=== PATIENT | male | born 1990 | race Caucasian/White ===

== ENCOUNTER 2016-12-16 02:53 | Emergency (ER) | payer MEDICAID ==
[~2016-12-16] VITALS: Ht 165.1 cm; Wt 60.0 kg
[2016-12-16] MEDS ORDERED: SODIUM CHLORIDE 0.9% 1,000 ML IV ONE ×2 (03:24→07:33)
[2016-12-16] MEDS ORDERED: TETANUS, DIPHTHERIA, PERTUSSIS VAC/PF 0.5ML (>7YR OLD) IM ONE (03:30)
[2016-12-16] MEDS ORDERED: LIDOCAINE HCL 1%/EPI 1:200,000 30 ML VIAL MC ONE (03:30)
[2016-12-16] MEDS ORDERED: BACITRACIN ZINC OINT UDPKT TOP ONE (03:30)
[2016-12-16 03:43] LABS: BASOPHILS % 0.3 % (0.0-2.0); EOSINOPHILS % 0.2 % (0.0-5.0); HEMATOCRIT. 42.1 % (42.0-52.0); HEMOGLOBIN. 14.2 g/dL (14.0-18.0); MEAN CORPUSCULAR HEMOGLOBIN 31.6 pg (28.0-32.0); MEAN CORPUSCULAR VOLUME 93.6 fL (80.0-94.0); MEAN PLATELET VOLUME 8.8 fl (7.4-10.4); MONOCYTES % 6.7 % (2.0-8.0); NEUTROPHILS % 79.8 % (40.0-76.0); PLATELET 231 x1000/uL (130-400); RED CELL DISTRIBUTION WIDTH 13.9 % (11.6-14.6)
[2016-12-16 03:56] LABS: CARBON DIOXIDE 27 mEq/L (21-32); CHLORIDE 106 mEq/L (98-107); ETHANOL BLOOD 122 mg/dL; TROPONIN I < 0.02 ng/mL (0.00-0.04)
[2016-12-16] MEDS ORDERED: ONDANSETRON HCL 4MG/2ML VIAL IV ONE (05:45)
[2016-12-16] MEDS ORDERED: MORPHINE SULFATE 4 MG/ML CPJ (NOT FOR IM USE) IV ONE ×3 (05:45→07:45)
[2016-12-16 09:29] VITALS: BP 133/80
[2016-12-16] MEDS ORDERED: SODIUM CHLORIDE 0.9% 10ML VIAL ONE (12:13)
[2016-12-16] MEDS ORDERED: IOHEXOL-300 100 ML BOTTLE ONE (12:13)
== END 2016-12-16 09:56 | disposition short-term general hospital (02) ==
LOC: ER 03:12
DX: S01.01XA Laceration without foreign body of scalp, initial encounter (principal); S32.029A Unspecified fracture of second lumbar vertebra, initial encounter for closed fracture; S32.039A Unspecified fracture of third lumbar vertebra, initial encounter for closed fracture; S22.039A Unspecified fracture of third thoracic vertebra, initial encounter for closed fracture; S22.41XA Multiple fractures of ribs, right side, initial encounter for closed fracture; Z85.47 Personal history of malignant neoplasm of testis; V43.62XA Car passenger injured in collision with other type car in traffic accident, initial encounter; Y93.89 Activity, other specified; Y92.488 Other paved roadways as the place of occurrence of the external cause
CPT/HCPCS: 12002; 36415; 70450; 71270; 72125; 73030; 74178; 80053; 84484; 85025; 90471; 90715; 96361; 96374; 96375; 96376; 99291; A4216; G0482; J2270; J2405; J7030; Q9967; Z7610

== ENCOUNTER 2016-12-27 14:32 | Emergency (ER) | payer MEDICAID ==
[~2016-12-27] VITALS: Ht 165.1 cm; Wt 59.0 kg
[2016-12-27 15:15] VITALS: BP 131/78
== END 2016-12-27 22:00 | disposition left against medical advice (07) ==
LOC: ER 21:57
DX: Z48.02 Encounter for removal of sutures (principal); Z53.21 Procedure and treatment not carried out due to patient leaving prior to being seen by health care provider